=== PATIENT | female | born 1950 | race Caucasian/White ===

== ENCOUNTER 2018-11-27 10:49 | Emergency (ER) | payer MEDICARE, MEDICAID ==
[~2018-11-27] VITALS: Ht 162.6 cm; Wt 81.8 kg
[2018-11-27 10:53] VITALS: Ht 162.6 cm; Wt 81.8 kg
[2018-11-27] MEDS ORDERED: PRINIVIL10 MG PO (10:57)
[2018-11-27] MEDS ORDERED: TENORMIN50 MG PO (10:57)
[2018-11-27] MEDS ORDERED: LEVOXYL50 MCG PO (10:57)
[2018-11-27] MEDS ORDERED: PRAVASTATIN SOD10 MG (10:59)
[2018-11-27] MEDS ORDERED: NORVASC10 MG PO (10:59)
[2018-11-27] MEDS ORDERED: BAYER CHEWABLE81 MG PO (11:06)
[2018-11-27 11:31] LABS: BASOPHILS 0.6 % (0-2); EOSINOPHILS 2.4 % (0-7); HEMATOCRIT 41.9 % (36.0-48.0); HEMOGLOBIN 14.3 g/dL (12-16); IMMATURE GRANULOCYTES 0.2 % (0-5); LYMPHOCYTES 41.2 % (15-50); MCH 31.1 pg (26.0-34.0); MCHC 34.1 g/dL (31.0-37.0); MCV 91.1 fL (80.0-100.0); MEAN PLATELET VOLUME 9.4 fL (7.4-10.4); MONOCYTES 8.9 % (2-11); NEUTROPHILS 46.7 % (40-80); PLATELET COUNT 180 10x3/uL (130-400); RDW 12.7 % (11.5-14.5)
[2018-11-27 11:40] LABS: CALC OSMOLALITY 278 mosm/kg (275-300); CARBON DIOXIDE 30.3 mmol/L (21.0-32.0); CHLORIDE - SERUM 102 mmol/L (98-107); CREATININE - SERUM 0.8 mg/dL (0.6-1.3); GLUCOSE 87 mg/dL (74-106); SODIUM 140 mmol/L (136-145); UREA NITROGEN 14 mg/dL (7-18); eGFR NON AFRICAN AMERICAN 75 mL/min (90-120)
[2018-11-27 12:02] LABS: APPEARANCE CLEAR (CLEAR); BACTERIA MANY /hpf (NONE SEEN); BILIRUBIN NEGATIVE (NEGATIVE); COLOR STRAW (YELLOW); EPITHELIAL CELLS 0-5 /hpf (0-5); GLUCOSE NEGATIVE (NEGATIVE); KETONE NEGATIVE (NEGATIVE); MUCUS <1+ /lpf (NONE SEEN); NITRITE NEGATIVE (NEGATIVE); PROTEIN NEGATIVE (NEGATIVE); SPECIFIC GRAVITY 1.005 (1.005-1.020); UROBILINOGEN NORMAL (NORMAL); WHITE CELLS - URINE 0-5 /hpf (0-5)
[2018-11-27 12:04] LABS: APTT 24.3 SECONDS (22.8-39.4); INR 0.96 (0.85-1.17); PROTIME 12.3 SECONDS (11.6-15.0)
[2018-11-27 12:16] LABS: ALKALINE PHOSPHATASE 96 U/L (46-116); ALT (SGPT) 20 U/L (10-68); BILIRUBIN - TOTAL 0.29 mg/dL (0.2-1.3); PROTEIN - SERUM 8.1 g/dL (6.4-8.2)
[2018-11-27] MEDS ORDERED: ADOXA100 MG PO (13:04)
[2018-11-27 13:18] VITALS: BP 146/66
== END 2018-11-27 13:18 | disposition home or self-care (01) ==
LOC: D.ER 10:49
PROVIDERS: Family Medicine
DX: J06.9 Acute upper respiratory infection, unspecified (principal); R04.2 Hemoptysis

== ENCOUNTER 2020-03-02 03:11 | Inpatient (IN) | payer MEDICARE ==
[2020-03-02] VITALS (7 sets, daily range): BP systolic 103–132; BP diastolic 48–64; BMI 34.9
[~2020-03-02] VITALS: Ht 162.6 cm; Wt 92.1 kg
[~2020-03-02 03:11] MED LIST: ADOXA100 MG PO; BAYER CHEWABLE81 MG PO; LEVOXYL50 MCG PO; NORVASC10 MG PO; PRAVASTATIN SOD10 MG; PRINIVIL10 MG PO; TENORMIN50 MG PO
[2020-03-02 03:35] LABS: BASOPHILS 0.1 % (0-2); EOSINOPHILS 0.1 % (0-7); HEMATOCRIT 37.4 % (36.0-48.0); HEMOGLOBIN 12.9 g/dL (12-16); IMMATURE GRANULOCYTES 0.6 % (0-5); LYMPHOCYTES 5.1 % (15-50); MCH 30.7 pg (26.0-34.0); MCHC 34.5 g/dL (31.0-37.0); MONOCYTES 2.2 % (2-11); NEUTROPHILS 91.9 % (40-80); PLATELET COUNT 173 10x3/uL (130-400); RDW 12.6 % (11.5-14.5); WBC 8.6 10x3/uL (4.8-10.8)
[2020-03-02 03:44] LABS: CALC OSMOLALITY 251 mosm/kg (275-300); CALCIUM 8.5 mg/dL (8.5-10.1); CARBON DIOXIDE 24.5 mmol/L (21.0-32.0); CHLORIDE - SERUM 91 mmol/L (98-107); CREATININE - SERUM 1.4 mg/dL (0.6-1.3); GLUCOSE 94 mg/dL (74-106); POTASSIUM - SERUM 3.7 mmol/L (3.5-5.1); SODIUM 123 mmol/L (136-145); UREA NITROGEN 24 mg/dL (7-18); eGFR NON AFRICAN AMERICAN 39 mL/min (90-120)
[2020-03-02 03:50] LABS: BILIRUBIN NEGATIVE (NEGATIVE); GLUCOSE NEGATIVE (NEGATIVE); KETONE NEGATIVE (NEGATIVE); NITRITE POSITIVE (NEGATIVE); SPECIFIC GRAVITY 1.015 (1.005-1.020); UROBILINOGEN NORMAL (NORMAL)
[2020-03-02 03:51] LABS: BACTERIA MODERATE /hpf (NEGATIVE); EPITHELIAL CELLS 0-5 /hpf (0-5); RED CELLS - URINE 0-5 /hpf (0-5); WHITE CELLS - URINE 0-5 /hpf (NEGATIVE)
[2020-03-02 03:58] LABS: ALBUMIN 3.5 g/dL (3.4-5.0); ALKALINE PHOSPHATASE 100 U/L (30-120); ALT (SGPT) 23 U/L (10-68); BILIRUBIN - TOTAL 1.24 mg/dL (0.2-1.3); CREATINE KINASE 80 UL (21-215); LIPASE 87 U/L (73-393); PRO BNP 1611 pg/mL (0-125); PROTEIN - SERUM 7.1 g/dL (6.4-8.2); THYROID STIMULATING HORMONE 3.42 uIU/mL (0.36-3.74); TROPONIN-I < 0.017 ng/mL (0.000-0.060)
--- NOTE | 2020-03-02 05:40 | NUR ---
PT TO ROOM 2106 VIA STRETCHER ACCOMPANIED BY HOSPITAL STAFF AND SON.
--- NOTE | 2020-03-02 07:20 | NUR ---
RECIEVE REPORT. ALERT AND ORIENTED X4. INITIATE ADMISSION ASSESSMENT. VITALS STABLE. DENIES N/V SINCE ARRIVING TO ROOM. SCDs IN ROOM, REFUSE TO WEAR AT THIS TIME. NO SIGNS OF DISTRESS. DENIES SOB OR PAIN. CONTINUE PLAN OF CARE AND SAFETY PRECAUTIONS.
--- NOTE | 2020-03-02 19:40 | NUR ---
REPORT RECEIVED, WILL CONTINUE POC. PATIENT IS AAOX4, LYING IN SEMI-FOWLERS POSITION. NO S/S OF DISTRESS OBSERVED, RR EVEN AND UNLABORED ON ROOM AIR. PIV TO RT AC, INFUSING FLUIDS. PATIENT REQUESTING ICE CREAM AND SODA, GIVEN. PATIENT DENIES FURTHER NEEDS AT THIS TIME. CL IN REACH, BED LOCKED AND LOWERED. WILL CTM.
[2020-03-03] VITALS: BP 119/65
--- NOTE | 2020-03-03 02:27 | NUR ---
I have reviewed this patient and I concur with the Shift Assessment completed by the Licensed Practical Nurse today this shift.
[2020-03-03 04:00] VITALS: BP 153/71
[2020-03-03 05:49] LABS: BASOPHILS 0.3 % (0-2); EOSINOPHILS 0.9 % (0-7); HEMATOCRIT 39.3 % (36.0-48.0); HEMOGLOBIN 13.2 g/dL (12-16); IMMATURE GRANULOCYTES 0.5 % (0-5); LYMPHOCYTES 10.2 % (15-50); MCH 30.1 pg (26.0-34.0); MCHC 33.6 g/dL (31.0-37.0); MCV 89.5 fL (80.0-100.0); MEAN PLATELET VOLUME 9.6 fL (7.4-10.4); MONOCYTES 8.8 % (2-11); NEUTROPHILS 79.3 % (40-80); PLATELET COUNT 176 10x3/uL (130-400); RBC 4.39 10x6/uL (4.00-5.40); RDW 12.6 % (11.5-14.5); WBC 8.8 10x3/uL (4.8-10.8)
[2020-03-03 06:16] LABS: ALBUMIN 2.9 g/dL (3.4-5.0); ANION GAP 14.1 mmol/L (8-16); BILIRUBIN - TOTAL 0.5 mg/dL (0.2-1.3); CARBON DIOXIDE 23.8 mmol/L (21.0-32.0); CREATININE - SERUM 1.2 mg/dL (0.6-1.3); POTASSIUM - SERUM 3.9 mmol/L (3.5-5.1); PROTEIN - SERUM 6.1 g/dL (6.4-8.2)
--- NOTE | 2020-03-03 08:26 | NUR ---
PT SITTING UP IN BED, RR EVEN AND UNLABORED. HAD A FEW QUESTIONS ABOUT POC, ANSWERED TO THE BEST OF MY ABILITY, VERBALIZED UNDERSTANDING AND NO FURTHER QUESTIONS AT THIS TIME. CALL LIGHT WITHIN REACH. BED IN LOWEST POSITION. WILL CONTINUE TO MONITOR,
[2020-03-03] MEDS ORDERED: LEVOFLOXACIN500 MG PO (09:39)
[2020-03-03 10:03] VITALS: BP 149/71
--- NOTE | 2020-03-03 10:30 | MORECARE ---
CASE MANAGEMENT DISCHARGE SUMMARY PATIENT: ROSA WYNNE UNIT: [id number] ADM DATE: 03/02/20 AGE: 69 : 49 SEX: F ROOM/BED: D.2106 AUTHOR: LEÓN,DOC PHYSICIAN: REFERRING PHYSICIAN: LAKIA KNAPP MD DATE OF SERVICE: 03/03/20 Discharge Plan Patient Name: ROSA WYNNE Facility: [facility]:[place] : 1950 Planned Disposition: Home Anticipated Discharge Date: 03/03/20 Discharge Date: Expected LOS: 1 Initial Reviewer: [email or web address] Initial Review Date: 03/03/2020 Generated: 03/03/20 11:30 am Comments DCP- Discharge Planning Updated by [email or web address]: Kayley Urrutia on 03/03/20 9:[address] Patient Name: ROSA WYNNE Admission Status: ER Accout number: [id number] Admission Date: 03-02-2020 : 1950 Admission Diagnosis: Attending: LAKIA KNAPP Current LOS: 1 Anticipated DC Date: 03-03-2020 Planned Disposition: Home Primary Insurance: MEDICARE A & B Discharge Planning Comments: CM met with patient to complete initial dc planning assessment. CM educated patient on the CM role and verbal consent given by patient to complete assessment. Patient lives in a camper alone, states her son's live on either side of her. Patient's homenumber is [phone]. At discharge patient plans to return and feels this is a safe discharge. CM discussed availability of home health, rehab services, and medical equipment. Patient denied known discharge needs at this time. States her son, Lincoln, will pick her up on discharge. CM will continue to follow and will assist as needed with dc plans/needs. Solderer Assembler: Kayley Urrutia DCPIA - Discharge Planning Initial Assessment Updated by [email or web address]: Kayley Urrutia on 03/03/20 10:25 am * Is the patient Alert and Oriented? Yes * How many steps to enter\exit or inside your home? 2/0 * PCP Dr. Marrero * Pharmacy [facility] [address] * Preadmission Environment Home Alone * ADLs Independent * Equipment None * List name and contact numbers for known caregivers / representatives who currently or will assist patient after discharge: Lisbeth Wynne - [place] - [phone] * Verbal permission to speak to the caregivers and representatives has been obtained from the patient. Yes * Community resources currently utilized None * Additional services required to return to the preadmission environment? No * Can the patient safely return to the preadmission environment? Yes * Has this patient been hospitalized within the prior 30 days at any hospital? No Patient Name: ROSA WYNNE Page [phone] at 1030 All edits/amendments must be made on the electronic document DICTATION DATE: 03/03/20 1030 FORESTRY CONSULTANT: MANDI 03/03/20 1030 RPT#: [id number] DC DATE: STATUS: ADM IN [facility] [address] [place] [address] END OF REPORT
[2020-03-03 12:28] VITALS: Ht 162.6 cm; Wt 92.1 kg
--- NOTE | 2020-03-03 12:48 | NUR ---
D/C INSTRUCTIONS REVIEWED WTIH PT, VERBALIZED UNDERSTANDING. IV D/C WITH CATHTETER TIP INTACT. PT LEFT WITH ALL BELONGINGS VIA WHEELCHAIR.
--- NOTE | 2020-03-04 09:09 | MORECARE ---
CASE MANAGEMENT DISCHARGE SUMMARY PATIENT: ROSA WYNNE UNIT: [id number] ADM DATE: 03/02/20 AGE: 69 : 49 SEX: F ROOM/BED: D.2106 AUTHOR: LEÓN,DOC PHYSICIAN: REFERRING PHYSICIAN: LAKIA KNAPP MD DATE OF SERVICE: 03/04/20 Discharge Plan Patient Name: ROSA WYNNE Facility: [facility]:[place] : 1950 Planned Disposition: Home Anticipated Discharge Date: 03/03/20 Discharge Date: 03/03/2020 Expected LOS: 1 Initial Reviewer: [email or web address] Initial Review Date: 03/03/2020 Generated: 03/04/20 10:08 am Comments DCP- Discharge Planning Updated by [email or web address]: Kayley Urrutia on 03/03/20 9:[address] Patient Name: ROSA WYNNE Admission Status: ER Accout number: [id number] Admission Date: 03-02-2020 : 1950 Admission Diagnosis: Attending: LAKIA KNAPP Current LOS: 1 Anticipated DC Date: 03-03-2020 Planned Disposition: Home Primary Insurance: MEDICARE A & B Discharge Planning Comments: CM met with patient to complete initial dc planning assessment. CM educated patient on the CM role and verbal consent given by patient to complete assessment. Patient lives in a camper alone, states her son's live on either side of her. Patient's homenumber is [phone]. At discharge patient plans to return and feels this is a safe discharge. CM discussed availability of home health, rehab services, and medical equipment. Patient denied known discharge needs at this time. States her son, Lincoln, will pick her up on discharge. CM will continue to follow and will assist as needed with dc plans/needs. Farmworker Vegetable: Kayley Urrutia DCPIA - Discharge Planning Initial Assessment Updated by [email or web address]: Kayley Urrutia on 03/03/20 10:25 am * Is the patient Alert and Oriented? Yes * How many steps to enter\exit or inside your home? 2/0 * PCP Dr. Marrero * Pharmacy [facility] [address] * Preadmission Environment Home Alone * ADLs Independent * Equipment None * List name and contact numbers for known caregivers / representatives who currently or will assist patient after discharge: Lisbeth Wynne - [place] - [phone] * Verbal permission to speak to the caregivers and representatives has been obtained from the patient. Yes * Community resources currently utilized None * Additional services required to return to the preadmission environment? No * Can the patient safely return to the preadmission environment? Yes * Has this patient been hospitalized within the prior 30 days at any hospital? No Last DP export: 03/03/20 9:30 am Patient Name: ROSA WYNNE Page [phone] at 0909 All edits/amendments must be made on the electronic document DICTATION DATE: 03/04/20908 BILLIARD TABLE ASSEMBLER: MANDI 03/04/20908 RPT#: [id number] DC DATE:03/03/20 STATUS: DIS IN [facility] [address] [place] [address] END OF REPORT
== END 2020-03-03 12:48 | disposition home or self-care (01) | DRG 683 ==
LOC: D.ER 03:11 → D.ICU 03:57 → D.M2 05:04
PROVIDERS: Family Medicine; ADMIT Family Medicine; ATTEND Family Medicine
DX: N17.9 Acute kidney failure, unspecified (principal); E87.1 Hypo-osmolality and hyponatremia; N39.0 Urinary tract infection, site not specified; I10 Essential (primary) hypertension; E78.5 Hyperlipidemia, unspecified